=== PATIENT | male | born 1995 | race Caucasian/White ===

== ENCOUNTER 2018-01-05 13:11 | Emergency (ER) | payer BC, SELFPAY ==
[2018-01-05 13:24] VITALS: BP 126/85; PULSE 78; RESP 16; TEMP 36.5
--- NOTE | 2018-01-05 13:29 | ED.GENADUL_ITS ---
Discharge Plan Disposition Patient Disposition: HOME Condition: Stable Discharge Details Chief Complaint: Nk/Back Pain Clinical Impression: Back pain Reason For Visit: back pain Primary Care Provider: Misty Fraser ED Provider: Norma Roberts Home Meds and New Rx's Prescriptions: New prednisone 50 mg tablet 50 mg PO DAILY Qty: 4 RF: 0 No Action omeprazole 20 MG tablet,delayed release (DR/EC) 20 mg PO DAILY 90 Days Qty: 90 RF: 3 diazepam [Valium] 5 mg tablet 5 mg PO TID PRN (Reason: muscle spasm) Qty: 10 RF: 0 Discharge Instructions Instructions: Prednisone (By mouth), Cyclobenzaprine (By mouth), Back Pain (ED) Additional Instructions: Please return immediately to the emergency department if you develop any new or worsening symptoms or if you become otherwise concerned. It is extremely important that you make an appointment to be seen in follow-up for this visit by your primary care doctor within the next 1-2 weeks. Stand Alone Forms: Work Release Referrals: Misty Fraser, [employer] [Primary Care Provider] - Discharge Data Discharge Date/Time-TO BE ENTERED AT DEPARTURE: 01/05/18 16:07 Medical Decision Making Woody Garcia is a 22-year-old man with history of ADHD presenting to the emergency department with diffuse thoracic and lumbar back pain for the past 2 days, worse with lifting, bending, and movement. Pain is nonexertional and there is no chest pain or abdominal pain. On exam patient has diffuse tenderness to palpation of the thoracic and lumbar spine without focality. The C-spine is nontender. There are no motor or sensory deficits of the lower extremities. Exam/history is not consistent with renal stone, fx, UTI, acute aortic pathology, sepsis, ACS, PE, cauda equina syndrome, epidural abscess, epidural hematoma, other cord compression, or other acute life or limb threatening etiology. Concern for likely muscle strain. Postvoid residual shows 2 cc of fluid. Plan for prednisone, Flexeril, outpatient follow-up with PCP. Patient asks incidental question regarding lightheadedness that he has with squatting. States this has been ongoing since last spring, that when he squats down and then stands up he feels very lightheaded. He reports that he has fainted once from this in the past, although this was several months ago. Patient reports that he exerts himself frequently, and has never had lightheadedness, palpitations, chest pain, or any other symptoms during exertion. Will obtain EKG. He has no current lightheadedness and again states that any associated onset of back pain. EKG is okay. Exam/history is not consistent with arrhythmia, other acute life- threatening process. EKG does not show HOCM. Patient needs outpatient follow- up with PCP for further evaluation. Lengthy discussion with patient regarding return to emergency department precautions and importance of outpatient follow- up with his PCP, patient is placed on list for care management for outpatient follow-up. Patient is amenable to the plan. Medical Records Medical records reviewed: Yes I reviewed the patient's medical records. ECG Data Attestation: I personally reviewed and interpreted this ECG (s) as follows: Interpretation: EKG shows sinus bradycardia at 57, normal axis, no Brugada, no WPW, no long QT, no HOCM, no STEMI, nondiagnostic EKG. HPI General Mode of arrival: ambulatory . Date/Time Provider Initiated Documentation: 01/05/18 13:29 . Limitations to Documentation: no limitations . Information obtained by: patient, RN notes reviewed and old records reviewed . HPI Narrative: Woody Garcia is a 22-year-old man with a history of ADHD presenting to the emergency department back pain. Patient reports that 2 days ago he developed sudden onset back pain diffusely throughout his whole back upon getting out of bed. Patient reports that he works at [employer], and during lifting and bending, his pain has become much worse. Patient reports that pain decreases significantly but does not fully resolve with rest, and becomes much worse with bending, lifting, or other exaggerated movement. He denies any chest pain or abdominal pain. He reports that he has had similar back pain in the past in location and quality but this is worse in severity. He denies chest pain, abdominal pain, any other pain, fevers, cough, shortness of breath, nausea, vomiting, diarrhea, numbness, tingling, weakness, change in urinary function, constipation or change in bowel function. No recent travel, has been eating and drinking as usual, no recent illness. Not on blood thinners. No history of IV drug use. Related Data Home Medications Medication Instructions Recorded Confirmed omeprazole 20 mg PO DAILY 90 Days #90 07/25/17 01/08/18 tablet. prednisone 50 mg PO DAILY #4 tab 01/05/18 01/08/18 diazepam [Valium] 5 mg PO TID PRN #10 tab 01/08/18 Previous Rx's Medication Instructions Recorded omeprazole 20 mg PO DAILY 90 Days #90 07/25/17 tablet. prednisone 50 mg PO DAILY #4 tab 01/05/18 diazepam [Valium] 5 mg PO TID PRN #10 tab 01/08/18 Allergies Allergy/AdvReac Type Severity Reaction Status Date / Time No Known Allergies Allergy Verified 01/08/18 08:54 General Stated Complaint: Nk/Back Pain DAQUAN: 4 Review of Systems Review of Systems Constitutional: denies fevers Eyes: denies eye pain ENT: denies facial pain, dental pain, sore throat Cardiovascular: denies chest pain, edema Respiratory: denies SOB, cough GI: denies abdominal pain, vomiting, diarrhea, constipation : denies flank pain, urinary hesitation, retention, or incontinence MSK: denies neck pain, arthralgias, myalgias, reports back pain Skin: denies rash Neuro: denies headaches, lightheadedness, weakness, numbness, tingling PFSH Family History Mother No problems noted. Father No problems noted. Sister No problems noted. Brother No problems noted. Brother No problems noted. Brother No problems noted. Social History household members: family lives independently: Yes current occupational status: employed current occupation: [employer] Smoking/Tobacco Use Status: Never alcohol intake: never substance use type: marijuana seatbelt use: always working smoke detector in home: Yes carbon monox detector in home: Yes Social History household members: family lives independently: Yes current occupational status: employed current occupation: [employer] Smoking/Tobacco Use Status: Never alcohol intake: never substance use type: marijuana seatbelt use: always working smoke detector in home: Yes carbon monox detector in home: Yes Exam Narrative Exam Narrative: Constitutional: well and [id number], pleasant, conversing normally HENT: head atraumatic, normocephalic normal inspection, mucous membranes moist Eyes: conjunctiva normal, sclera normal, pupils 3mm b/l Neck: no stridor, normal ROM, trachea midline. C-spine is nontender to palpation. Chest: normal inspection Resp: normal work of breathing, LCTAB Cardio: normal rate, normal rhythm, no murmur appreciated GI: abdomen soft, non-tender, non-distended Back: normal inspection, no rash. Diffuse tenderness to palpation of the thoracic and lumbar spine without focality or point tenderness. There is no tenderness palpation of the paraspinals. Skin: warm, dry, normal color, no rash Neuro: alert, not altered, grossly non-focal, normal tone. Motor 5 out of 5 bilateral lower extremities, no sensory deficit of the lower extremities. Ext: no edema Psych: normal mood, normal affect, normal behavior Course Vital Signs Temperature 36.5 C 01/05/18 13:24 Pulse 78 01/05/18 13:24 Respiratory Rate 16 01/05/18 13:24 Blood Pressure 126/85 01/05/18 13:24 Temperature 36.5 C 01/05/18 13:24 Temperature Source Temporal Artery Scan 01/05/18 13:24 Pulse 78 01/05/18 13:24 Respiratory Rate 16 01/05/18 13:24 Blood Pressure 126/85 01/05/18 13:24 Blood Pressure Position Sitting 01/05/18 13:24 Oxygen Delivery Method Room Air 01/05/18 13:24 Oxygen Flow Rate 0 01/05/18 13:24 Pain Level 7 01/05/18 13:24
[2018-01-05] MEDS: predniSONE 20 MG TAB 60 MG PO (15:55)
== END 2018-01-05 16:07 | disposition home or self-care (01) ==
LOC: ER 15:26
PROVIDERS: Emergency Provider Student in an Organized Health Care Education/Training Program; PCP Nurse Practitioner
DX: M54.5 Low back pain (principal); M54.6 Pain in thoracic spine; R42 Dizziness and giddiness; R00.1 Bradycardia, unspecified
CPT/HCPCS: 93005; 99283; 81003; 93010; J7512

== ENCOUNTER 2018-01-08 08:48 | Emergency (ER) | payer BC, SELFPAY ==
[2018-01-08 08:51] VITALS: BP 144/78; PULSE 90; RESP 18; TEMP 36.4; O2SAT 99
--- NOTE | 2018-01-08 09:00 | W.ED.GENAD ---
Discharge Plan Disposition Patient Disposition: HOME Condition: Stable Discharge Details Chief Complaint: Nk/Back Pain Clinical Impression: Herniation of intervertebral disc of thoracic region Primary Care Provider: Misty Fraser ED Provider: Silvia Tobar Home Meds and New Rx's Prescriptions: New diazepam [Valium] 5 mg tablet 5 mg PO TID PRN (Reason: muscle spasm) Qty: 10 RF: 0 Continue omeprazole 20 MG tablet,delayed release (DR/EC) 20 mg PO DAILY 90 Days Qty: 90 RF: 3 lisdexamfetamine [Vyvanse] 40 mg capsule 40 mg PO DAILY MDD 1 28 Days Qty: 28 RF: 0 prednisone 50 mg tablet 50 mg PO DAILY Qty: 4 RF: 0 Discontinued cyclobenzaprine 5 mg tablet 5 mg PO TID PRN (Reason: back pain) Qty: 9 RF: 0 Discharge Instructions Instructions: Thoracic Disc Herniation (ED) Additional Instructions: Encourage hydration. Tylenol and/or ibuprofen as needed for discomfort. You may take approximately grams of Tylenol every 6 hours as needed, 600 mg of ibuprofen every 6 hours as needed. Please finish the steroid burst. Please stop Flexeril and use Valium as prescribed for muscle spasm. Please do not drive while taking this medication. We have an appointment next at 10 AM at the spine Center on [address] with Jordi Cervantes. Please arrive at 940 in the morning. After this appointment, you have an appointment with spine therapy. [phone] If you develop weakness in the lower extremities, change in bowel or bladder habits or other new/worsening symptoms please seek care urgently once again. Stand Alone Forms: Work Release Discharge Data Discharge Date/Time-TO BE ENTERED AT DEPARTURE: 01/08/18 14:05 Medical Decision Making Patient is a 22-year-old male presenting today with chief complaint of continued back pain. He was seen here 3 days ago at which time he was diagnosed with muscle spasm and back strain. Patient states the pain initially began abruptly 5 days ago. Had awoken with his discomfort approximately 5 days ago. Patient does work at [employer] and does frequent heavy lifting. Patient was placed on prednisone and Flexeril despite this the pain has greatly increased. Pain is fairly diffuse lower thoracic and lumbar spine. He denies any fevers or chills. Vital signs within normal limits. On exam, patient has diffuse discomfort with spasm palpable on the left side. Patient appears clearly uncomfortable with frequent muscle spasms particularly in his legs. Positive straight leg raise on the left. Diminished two-point sensation on the left compared to the right. He is endorsing some sensation changes in the lateral aspect of the lower extremities, more so than saddle paresthesias. He appears nontoxic. At this point, given the sensory changes and increase in his discomfort, I feel that MRI is appropriate. Patient will be given p.o. Valium to help with muscle spasm and a small amount of IV Dilaudid to help with discomfort. Laboratory evaluation without abnoramlity, no leukocytosis. No elevatio in ESR or CRP. Patient feels much improved after valium, this seems to control his muscle spasms much better. MRI reviewed by radiologist. We discussed this over the phone. Dr. Banda advised that there is multiple disc herniations. Advised that there is no herniation of the lumbar spine. However, thoracic spine is significant for herniation on the left side at T8 6 7, T7-8. Also notes herniation on the right side at T8-9. Advised that there is cord deformity but no compression or stenosis. Consult with Dr. Boothe who advised referral to spine clinic Given the changes in his sensation in the LLe and continued pain, will consult with spine surgery at [facility]. Spoke with nursing staff at [facility] spine center. Dr. Zheng reviewed MRI. He advised that none of the disc herniations are overly remarkable. Advised that they are pretty small. He did note that the one on the right side was larger than those on the left. He did advise follow-up in their clinic. Appointment was made for the patient in 1 week. Also advised spine therapy who the patient will be seen after. Nursing staff did ask Dr. Zhegn about increasing steroids but this was not recommended at this time. They did advised symptomatic management Discussed these findings and the plan with the patient and his family. As he has had pain in this area previously over the past several years, I advised that this may be nonacute and rather an exacerbation of his chronic discomfort. Valium sseemed work much better for his muscle spasms. Patient will be prescribed oral Valium. Advised against driving while taking his medication. He will continue with prednisone. Will stop Flexeril. Tylenol and ibuprofen as needed for discomfort. We discussed new/worsening symptoms when to seek care urgently once again. In particular, discussed neurologic changes that should prompt him to return immediately. Work note was given. All of his questions and concerns were addressed and he is in agreement with this plan. HPI General Mode of arrival: ambulatory. Date/Time Provider Initiated Documentation: 01/08/18 08:56. Limitations to Documentation: no limitations. Information obtained by: patient. History of Present Illness 22 year old M presents to the emergency department with the chief complaint of back pain, described as moderate, with intensity rated at 8. Quality is described as stabbing and aching, and is localized to the back. Patient reports no radiation. Patient started experiencing this day(s) (5) and it has been constant. Immobilization improves symptom(s), Movement worsens symptoms . Patient notes denies chest pain, cough, fever/chills, headaches, nausea/vomiting, rash and weakness. Patient did receive the following treatments prior to arrival, other (took Flexeril as prescribed this AM) Related Data Home Medications Medication Instructions Recorded Confirmed omeprazole 20 mg PO DAILY 90 Days #90 07/25/17 01/08/18 tablet. lisdexamfetamine 40 mg capsule 40 mg PO DAILY 28 Days #28 tab-cap 11/20/17 01/08/18 MDD 1 prednisone 50 mg PO DAILY #4 tab 01/05/18 01/08/18 diazepam [Valium] 5 mg PO TID PRN #10 tab 01/08/18 Previous Rx's Medication Instructions Recorded omeprazole 20 mg PO DAILY 90 Days #90 07/25/17 tablet.dr mcduffiedexamfetamine 40 mg capsule 40 mg PO DAILY 28 Days #28 tab-cap 11/20/17 MDD 1 prednisone 50 mg PO DAILY #4 tab 01/05/18 diazepam [Valium] 5 mg PO TID PRN #10 tab 01/08/18 Allergies Allergy/AdvReac Type Severity Reaction Status Date / Time No Known Allergies Allergy Verified 01/08/18 08:54 General Stated Complaint: Nk/Back Pain DAQUAN: 3 Review of Systems Constitutional Reports as per HPI, Denies chills, Denies fever(s), Denies headache(s) and Denies weakness ENT Denies headache(s) Cardiovascular Reports as per HPI Respiratory Reports as per HPI and Denies cough Gastrointestinal Denies abdominal pain, Denies change in stool character, Denies nausea and Denies vomiting Genitourinary Denies difficulty urinating, Denies urinary hesitancy and Denies urinary incontinence Musculoskeletal Reports as per HPI, Denies abnormal gait, Reports back pain, Reports limited range of motion and Reports numbness (denies numbness but endorses diminished sensation in the bilateral LE, worse in diann LLE) Integumentary/Breasts Reports as per HPI, Denies rash and Denies wounds Neurologic Denies abnormal gait, Denies headache(s), Reports numbness (denies numbness but endorses diminished sensation in the bilateral LE, worse in diann LLE), Denies radicular pain, Reports sensory deficit and Denies weakness PFSH Family History Mother No problems noted. Father No problems noted. Sister No problems noted. Brother No problems noted. Brother No problems noted. Brother No problems noted. Family History Mother No problems noted. Father No problems noted. Sister No problems noted. Brother No problems noted. Brother No problems noted. Brother No problems noted. Social History household members: family lives independently: Yes current occupational status: employed current occupation: [employer] Smoking/Tobacco Use Status: Never alcohol intake: never substance use type: marijuana seatbelt use: always working smoke detector in home: Yes carbon monox detector in home: Yes Social History household members: family lives independently: Yes current occupational status: employed current occupation: [employer] Smoking/Tobacco Use Status: Never alcohol intake: never substance use type: marijuana seatbelt use: always working smoke detector in home: Yes carbon monox detector in home: Yes Exam Const General: cooperative, healthy appearing, comfortable, no acute distress, well developed and well groomed Nutritional Appearance: average body habitus and well nourished Orientation: alert and awake Neck Neck: normal visual inspection, full ROM, no lymphadenopathy and no meningeal signs Chest Chest: normal inspection of the chest and no localized rib tenderness Resp Effort & Inspection: normal respiratory effort, able to speak in complete sentences and no respiratory distress Auscultation: clear to auscultation bilaterally Cardio Rate: regular rate Rhythm: regular rhythm Heart Sounds: S1 normal and S2 normal GI Inspection: normal to inspection Palpation: soft, no guarding and nontender Back/Spine/Pelvis Back: no CVA tenderness Cervical Spine: normal cervical lordosis and cervical ROM normal Thoracic/Lumbar Spine: No thoracic and lumbar spine normal to inspection (pain with palpation over the thoracic and lumbar spine. T>L. Fairly diffuse, pain maximal left of midline. No step off palpable. Limited ROM, particularly with rotation to the left), No surgical scar(s) present, No straight leg raise negative bilaterally (positive bilatearlly, pain worse and earlier on the left side), pain with thoraco-lumbar ROM, paraspinal tenderness and straight leg raise positive Skin General skin exam: no rashes or lesions noted Lesions: no lesions Rashes: no rashes Trauma: no lacerations or abrasions Neuro General: alert, awake, oriented x3, gait normal, tone normal, moves all extremities, no meningeal signs, no focal motor deficits and deep tendon reflexes 2+ bilaterally Cognition: normal cognition Speech: speech normal Gait: normal gait Motor: muscle tone normal throughout and strength 5/5 throughout Sensory Exam: abnormal double simultaneous stimulation (2 point discriminiation intact on the RLE, limited on the LLE. ) DTR's: Rt Patellar: 2+, Lt Patellar: 2+, Rt Ankle: 2+ and Lt Ankle: 2+ Plantar Reflexes: Downgoing: bilateral Extrem General: abnormal to inspection (sensory deficit as noted above) Psych Appearance: grossly normal and well kempt Mental Status: mental status grossly normal Speech and Movement: speech and movement normal Course Vital Signs Temperature 36.4 C L 01/08/18 08:51 Pulse 90 01/08/18 08:51 Respiratory Rate 18 01/08/18 08:51 Blood Pressure 144/78 H 01/08/18 08:51 Pulse Oximetry 99 01/08/18 08:51 Temperature 36.4 C L 01/08/18 08:51 Temperature Source Temporal Artery Scan 01/08/18 08:51 Pulse 90 01/08/18 08:51 Respiratory Rate 18 01/08/18 08:51 Respiratory Effort Non-Labored 01/08/18 08:53 Blood Pressure 144/78 H 01/08/18 08:51 Blood Pressure Position Sitting 01/08/18 08:51 Pulse Oximetry 99 01/08/18 08:51 Oxygen Delivery Method Room Air 01/08/18 08:51 Oxygen Flow Rate 0 01/08/18 08:51 Pain Level 8 01/08/18 08:51
--- NOTE | 2018-01-08 09:06 | ED.GENADUL_ITS ---
Discharge Plan Disposition Patient Disposition: HOME Condition: Stable Discharge Details Chief Complaint: Nk/Back Pain Clinical Impression: Herniation of intervertebral disc of thoracic region Primary Care Provider: Misty Fraser ED Provider: Silvia Tobar Home Meds and New Rx's Prescriptions: New diazepam [Valium] 5 mg tablet 5 mg PO TID PRN (Reason: muscle spasm) Qty: 10 RF: 0 Continue omeprazole 20 MG tablet,delayed release (DR/EC) 20 mg PO DAILY 90 Days Qty: 90 RF: 3 lisdexamfetamine [Vyvanse] 40 mg capsule 40 mg PO DAILY MDD 1 28 Days Qty: 28 RF: 0 prednisone 50 mg tablet 50 mg PO DAILY Qty: 4 RF: 0 Discontinued cyclobenzaprine 5 mg tablet 5 mg PO TID PRN (Reason: back pain) Qty: 9 RF: 0 Discharge Instructions Instructions: Thoracic Disc Herniation (ED) Additional Instructions: Encourage hydration. Tylenol and/or ibuprofen as needed for discomfort. You may take approximately grams of Tylenol every 6 hours as needed, 600 mg of ibuprofen every 6 hours as needed. Please finish the steroid burst. Please stop Flexeril and use Valium as prescribed for muscle spasm. Please do not drive while taking this medication. We have an appointment next at 10 AM at the spine Center on [address] with Jordi Cervantes. Please arrive at 940 in the morning. After this appointment, you have an appointment with spine therapy. [phone] If you develop weakness in the lower extremities, change in bowel or bladder habits or other new/worsening symptoms please seek care urgently once again. Stand Alone Forms: Work Release Discharge Data Discharge Date/Time-TO BE ENTERED AT DEPARTURE: 01/08/18 14:05 Medical Decision Making Patient is a 22-year-old male presenting today with chief complaint of continued back pain. He was seen here 3 days ago at which time he was diagnosed with muscle spasm and back strain. Patient states the pain initially began abruptly 5 days ago. Had awoken with his discomfort approximately 5 days ago. Patient does work at [employer] and does frequent heavy lifting. Patient was placed on prednisone and Flexeril despite this the pain has greatly increased. Pain is fairly diffuse lower thoracic and lumbar spine. He denies any fevers or chills. Vital signs within normal limits. On exam, patient has diffuse discomfort with spasm palpable on the left side. Patient appears clearly uncomfortable with frequent muscle spasms particularly in his legs. Positive straight leg raise on the left. Diminished two-point sensation on the left compared to the right. He is endorsing some sensation changes in the lateral aspect of the lower extremities, more so than saddle paresthesias. He appears nontoxic. At this point, given the sensory changes and increase in his discomfort, I feel that MRI is appropriate. Patient will be given p.o. Valium to help with muscle spasm and a small amount of IV Dilaudid to help with discomfort. Laboratory evaluation without abnoramlity, no leukocytosis. No elevatio in ESR or CRP. Patient feels much improved after valium, this seems to control his muscle spasms much better. MRI reviewed by radiologist. We discussed this over the phone. Dr. Banda advised that there is multiple disc herniations. Advised that there is no herniation of the lumbar spine. However, thoracic spine is significant for herniation on the left side at T8 6 7, T7-8. Also notes herniation on the right side at T8-9. Advised that there is cord deformity but no compression or stenosis. Consult with Dr. Boothe who advised referral to spine clinic Given the changes in his sensation in the LLe and continued pain, will consult with spine surgery at [facility]. Spoke with nursing staff at [facility] spine center. Dr. Zheng reviewed MRI. He advised that none of the disc herniations are overly remarkable. Advised that they are pretty small. He did note that the one on the right side was larger than those on the left. He did advise follow-up in their clinic. Appointment was made for the patient in 1 week. Also advised spine therapy who the patient will be seen after. Nursing staff did ask Dr. Zheng about increasing steroids but this was not recommended at this time. They did advised symptomatic management Discussed these findings and the plan with the patient and his family. As he has had pain in this area previously over the past several years, I advised that this may be nonacute and rather an exacerbation of his chronic discomfort. Valium sseemed work much better for his muscle spasms. Patient will be prescribed oral Valium. Advised against driving while taking his medication. He will continue with prednisone. Will stop Flexeril. Tylenol and ibuprofen as needed for discomfort. We discussed new/worsening symptoms when to seek care urgently once again. In particular, discussed neurologic changes that should prompt him to return immediately. Work note was given. All of his questions and concerns were addressed and he is in agreement with this plan. HPI General Mode of arrival: ambulatory . Date/Time Provider Initiated Documentation: 01/08/18 08:56 . Limitations to Documentation: no limitations . Information obtained by: patient . History of Present Illness 22 year old M presents to the emergency department with the chief complaint of back pain, described as moderate, with intensity rated at 8. Quality is described as stabbing and aching, and is localized to the back. Patient reports no radiation. Patient started experiencing this day(s) (5) and it has been constant. Immobilization improves symptom(s), Movement worsens symptoms . Patient notes denies chest pain, cough, fever/chills, headaches, nausea/vomiting, rash and weakness. Patient did receive the following treatments prior to arrival, other (took Flexeril as prescribed this AM) Related Data Home Medications Medication Instructions Recorded Confirmed omeprazole 20 mg PO DAILY 90 Days #90 07/25/17 01/08/18 tablet. lisdexamfetamine 40 mg capsule 40 mg PO DAILY 28 Days #28 tab-cap 11/20/1701/08 MDD 1 prednisone 50 mg PO DAILY #4 tab 01/05/18 01/08/18 diazepam [Valium] 5 mg PO TID PRN #10 tab 01/08/18 Previous Rx's Medication Instructions Recorded omeprazole 20 mg PO DAILY 90 Days #90 07/25/17 tablet.dr mcduffiedexamfetamine 40 mg capsule 40 mg PO DAILY 28 Days #28 tab-cap 11/20/17 MDD 1 prednisone 50 mg PO DAILY #4 tab 01/05/18 diazepam [Valium] 5 mg PO TID PRN #10 tab 01/08/18 Allergies Allergy/AdvReac Type Severity Reaction Status Date / Time No Known Allergies Allergy Verified 01/08/18 08:54 General Stated Complaint: Nk/Back Pain DAQUAN: 3 Review of Systems Constitutional Reports as per HPI, Denies chills, Denies fever(s), Denies headache(s) and Denies weakness ENT Denies headache(s) Cardiovascular Reports as per HPI Respiratory Reports as per HPI and Denies cough Gastrointestinal Denies abdominal pain, Denies change in stool character, Denies nausea and Denies vomiting Genitourinary Denies difficulty urinating, Denies urinary hesitancy and Denies urinary incontinence Musculoskeletal Reports as per HPI, Denies abnormal gait, Reports back pain, Reports limited range of motion and Reports numbness (denies numbness but endorses diminished sensation in the bilateral LE, worse in diann LLE) Integumentary/Breasts Reports as per HPI, Denies rash and Denies wounds Neurologic Denies abnormal gait, Denies headache(s), Reports numbness (denies numbness but endorses diminished sensation in the bilateral LE, worse in diann LLE), Denies radicular pain, Reports sensory deficit and Denies weakness PFSH Family History Mother No problems noted. Father No problems noted. Sister No problems noted. Brother No problems noted. Brother No problems noted. Brother No problems noted. Family History Mother No problems noted. Father No problems noted. Sister No problems noted. Brother No problems noted. Brother No problems noted. Brother No problems noted. Social History household members: family lives independently: Yes current occupational status: employed current occupation: [employer] Smoking/Tobacco Use Status: Never alcohol intake: never substance use type: marijuana seatbelt use: always working smoke detector in home: Yes carbon monox detector in home: Yes Social History household members: family lives independently: Yes current occupational status: employed current occupation: [employer] Smoking/Tobacco Use Status: Never alcohol intake: never substance use type: marijuana seatbelt use: always working smoke detector in home: Yes carbon monox detector in home: Yes Exam Const General: cooperative, healthy appearing, comfortable, no acute distress, well developed and well groomed Nutritional Appearance: average body habitus and well nourished Orientation: alert and awake Neck Neck: normal visual inspection, full ROM, no lymphadenopathy and no meningeal signs Chest Chest: normal inspection of the chest and no localized rib tenderness Resp Effort & Inspection: normal respiratory effort, able to speak in complete sentences and no respiratory distress Auscultation: clear to auscultation bilaterally Cardio Rate: regular rate Rhythm: regular rhythm Heart Sounds: S1 normal and S2 normal GI Inspection: normal to inspection Palpation: soft, no guarding and nontender Back/Spine/Pelvis Back: no CVA tenderness Cervical Spine: normal cervical lordosis and cervical ROM normal Thoracic/Lumbar Spine: No thoracic and lumbar spine normal to inspection (pain with palpation over the thoracic and lumbar spine. T>L. Fairly diffuse, pain maximal left of midline. No step off palpable. Limited ROM, particularly with rotation to the left), No surgical scar(s) present, No straight leg raise negative bilaterally (positive bilatearlly, pain worse and earlier on the left side), pain with thoraco-lumbar ROM, paraspinal tenderness and straight leg raise positive Skin General skin exam: no rashes or lesions noted Lesions: no lesions Rashes: no rashes Trauma: no lacerations or abrasions Neuro General: alert, awake, oriented x3, gait normal, tone normal, moves all extremities, no meningeal signs, no focal motor deficits and deep tendon reflexes 2+ bilaterally Cognition: normal cognition Speech: speech normal Gait: normal gait Motor: muscle tone normal throughout and strength 5/5 throughout Sensory Exam: abnormal double simultaneous stimulation (2 point discriminiation intact on the RLE, limited on the LLE. ) DTR's: Rt Patellar: 2+, Lt Patellar: 2+, Rt Ankle: 2+ and Lt Ankle: 2+ Plantar Reflexes: Downgoing: bilateral Extrem General: abnormal to inspection (sensory deficit as noted above) Psych Appearance: grossly normal and well kempt Mental Status: mental status grossly normal Speech and Movement: speech and movement normal Course Vital Signs Temperature 36.4 C L 01/08/18 08:51 Pulse 90 01/08/18 08:51 Respiratory Rate 18 01/08/18 08:51 Blood Pressure 144/78 H 01/08/18 08:51 Pulse Oximetry 99 01/08/18 08:51 Temperature 36.4 C L 01/08/18 08:51 Temperature Source Temporal Artery Scan 01/08/18 08:51 Pulse 90 01/08/18 08:51 Respiratory Rate 18 01/08/18 08:51 Respiratory Effort Non-Labored 01/08/18 08:53 Blood Pressure 144/78 H 01/08/18 08:51 Blood Pressure Position Sitting 01/08/18 08:51 Pulse Oximetry 99 01/08/18 08:51 Oxygen Delivery Method Room Air 01/08/18 08:51 Oxygen Flow Rate 0 01/08/18 08:51 Pain Level 8 01/08/18 08:51
[2018-01-08] MEDS: HYDROmorphone 2 MG/ML VIAL 1 MG IVP (09:39)
[2018-01-08] MEDS: Diazepam 5 MG TAB PO (09:39)
[2018-01-08 09:43] LABS: Abs Immature Grans 0.04 k/cumm (0.0-0.09); Absolute Basophil Count 0.04 k/cumm (0.0-0.2); Absolute Eosinophil Count 0.05 k/cumm (0.0-0.7); Absolute Monocyte Count 0.82 k/cumm (0.11-0.7); Absolute Neutrophil Count 5.82 k/cumm (1.2-6.7); Basophils % 0.4; Eosinophils % 0.5; HCT 45.7 % (40.0-50.0); HGB 15.3 g/dL (13.5-17.5); Immature Grans % 0.4; Mean Corp. HGB Concentration 33.5 g/dL (32.0-36.0); Mean Corpuscular Hemoglobin 29.5 pg (27.0-33.0); Mean Corpuscular Volume 88.1 fL (80-95); Mean Platelet Volume 10.4 fL (8.0-11.0); Monocytes % 8.8; Neutrophils % 62.9; Platelet Count 213 x1000/uL (130-400); RBC 5.19 m/cumm (4.50-6.00); RBC Distribution Width 13.5 % (11.8-14.1); White Blood Cell Count 9.27 k/cumm (4.4-10.8)
[2018-01-08] MEDS: Normal Saline 1,000 ML 1000 ML IV (09:44)
[2018-01-08 09:58] LABS: ALT 16 U/L (12-78); AST 8 U/L (15-37); Albumin 3.8 g/dL (3.4-5.0); Alkaline Phosphatase 58 U/L (46-116); Anion Gap 6.8 mmol/L (3-11); BUN 18 mg/dL (7-18); Bilirubin, Total 0.4 mg/dL (0.2-1.0); CO2 31.2 mmol/L (21.0-32.0); Chloride 105 mmol/L (98-107); Glucose 91 mg/dL (70-100); Potassium 3.7 mmol/L (3.5-5.1); Sodium 143 mmol/L (136-145); Total Protein 6.9 g/dL (6.4-8.2)
[2018-01-08 10:08] LABS: C-Reactive Protein 0.08 mg/dL (0.0-0.3)
[2018-01-08 10:17] LABS: ESR 7 MM/HR (0-15)
--- NOTE | 2018-01-08 11:20 | DI.MRI_ITS ---
SYMPTOM/DIAGNOSIS: DIMINISHED SENSATION LLE, PAIN, SPASM THORACIC SPINE MRI: 01/08 MRI examination of the thoracic spine was performed according to the usual protocol. No significant bony signal abnormality is seen. There is no bony central canal spinal stenosis At T6-7, there is a small to moderate sized left sided disc herniation, mild impingement on the anterior cord surface and slight deformity of the anterior cord surface noted at this level. At T7-T8 level there is small to moderate sized disc herniation with slight cord surface impingement and deformity also noted at this level. At T8-T9 there is a right moderate sized disc herniation with associated contour abnormality of the cord right anterior. Minimal right sided disc herniation is also noted at the T3-4 level without significant cord deformity. Intra cord signal appears normal throughout. No evidence of central canal spinal stenosis or neuroforaminal stenosis. CONCLUSION: Multi-level disc herniations as described above. Most prominent disc herniations are at T6-7 and T7-8 on left, and at T8-9 on right with associated mild anterior cord deformity at each of these levels.
--- NOTE | 2018-01-08 11:55 | DI.MRI_ITS ---
SYMPTOM/DIAGNOSIS: DIMINISHED SENSATION LLE, PAIN, SPASM LUMBOSACRAL SPINE MRI: 01/08 MRI examination of the lumbosacral spine was performed according to the usual protocol. No bony signal abnormality is seen. Disc signal appears intact. There is no evidence of disc herniation. There is no evidence of spinal stenosis or neural foramina stenosis. The conus medullaris appears intact. CONCLUSION: Normal lumbosacral spine MRI.
[2018-01-08 13:34] VITALS: BP 122/74; PULSE 89; RESP 16; TEMP 36.2; O2SAT 97
[2018-01-08 14:04] VITALS: BP 122/74; PULSE 89; RESP 16; TEMP 36.4; O2SAT 97
--- NOTE | 2018-01-09 12:26 | NUR.NOTE ---
Lab called stating no urine in lab. They will cancel the order. Mrecy Coleman
== END 2018-01-08 14:05 | disposition home or self-care (01) ==
PROVIDERS: Emergency Provider Physician Assistant; PCP Nurse Practitioner
DX: M51.24 Other intervertebral disc displacement, thoracic region (principal)
CPT/HCPCS: 80053; 85652; 99284; 72146; 72148; 81003; 85025; 86140

== ENCOUNTER 2018-06-17 13:18 | Outpatient (REF) | payer BC, SELFPAY ==
[2018-06-18 14:18] LABS: Campylobacter PCR SEE COMMENTS; Shiga Toxin PCR SEE COMMENTS; Shigella/Enteroinvasive Ecoli SEE COMMENTS
[2018-06-18 16:26] LABS: Salmonella PCR SEE COMMENTS
== END 2018-06-17 13:38 ==
LOC: LBN 13:18
PROVIDERS: PCP Nurse Practitioner; Visit Provider Family Medicine
DX: K52.9 Noninfective gastroenteritis and colitis, unspecified (principal)
CPT/HCPCS: 87329; 87505; 87177; 87324

== ENCOUNTER 2018-12-30 14:33 | Outpatient (CLI) | payer BC, SELFPAY ==
--- NOTE | 2018-12-30 14:15 | DI.RAD_ITS ---
EXAM: XR WRIST LT COMPLETE INDICATION: pain AFTER FALL M25.532. COMPARISON: No exams were available for comparison TECHNIQUE: 2D digital imaging was performed. FINDINGS: No fracture or dislocation is seen. IMPRESSION: Negative left wrist.
--- NOTE | 2018-12-30 14:55 | DI.RAD_ITS ---
EXAM: XR ELBOW LT COMPLETE INDICATION: pain AFTER FALL M25.522. COMPARISON: No exams were available for comparison TECHNIQUE: 2D digital imaging was performed. FINDINGS: No fracture or joint effusion is seen. A bone island is incidentally noted in the radial head. IMPRESSION: Negative left elbow.
--- NOTE | 2018-12-30 15:29 | DI.CT_ITS ---
EXAM: CT HEAD WO CLINICAL HISTORY: R51 headache, nausea, after fall, R11.0 NAUSEA TECHNIQUE: Noncontrast COMPARISON: No exams were available for comparison FINDINGS: No intracranial hemorrhage or skull fracture is seen. There is normal alvarez-white matter differentia tion. The ventricles are normal in size. The sinuses and mastoid air cells appear clear where visua lized. The orbits are unremarkable. IMPRESSION: Negative head CT.
== END 2018-12-30 14:53 ==
PROVIDERS: PCP Family Medicine; Visit Provider Nurse Practitioner
DX: M25.532 Pain in left wrist (principal); M25.522 Pain in left elbow; R51 Headache; R11.0 Nausea; W00.9XXA Unspecified fall due to ice and snow, initial encounter
CPT/HCPCS: 70450; 73080; 73110

== ENCOUNTER 2019-05-21 09:43 | Outpatient (CLI) | payer SELFPAY ==
[2019-05-24 09:53] LABS: COVID-19 RT-PCR Result Negative (Negative)
== END 2019-05-21 10:03 ==
PROVIDERS: PCP Family Medicine; Visit Provider Family Medicine
DX: R05 Cough (principal); Z03.818 Encounter for observation for suspected exposure to other biological agents ruled out
CPT/HCPCS: U0003

== ENCOUNTER 2019-12-17 08:45 | Outpatient (REF) | payer SELFPAY ==
[2019-12-21 20:22] LABS: N gonorrhoeae amplified RNA Negative (Negative); Source URINE
[2019-12-22 11:05] LABS: Chlamydia amplified RNA Positive (Negative)
== END 2019-12-17 09:05 ==
LOC: LBO 08:45
PROVIDERS: PCP Family Medicine; Visit Provider Family Medicine
DX: Z20.2 Contact with and (suspected) exposure to infections with a predominantly sexual mode of transmission (principal)
CPT/HCPCS: 87491; 87591

== ENCOUNTER 2020-03-28 03:01 | Outpatient (CLI) | payer SELFPAY ==
[2020-03-29 13:26] LABS: COVID-19 RT-PCR UVMMC Result Negative (Negative)
== END 2020-03-28 03:02 | disposition home or self-care (01) ==
LOC: LBO 03:01
PROVIDERS: Surgery; PCP Family Medicine; Visit Provider Surgery
DX: Z20.828 Contact with and (suspected) exposure to other viral communicable diseases (principal); Z01.818 Encounter for other preprocedural examination
CPT/HCPCS: U0003

== ENCOUNTER 2020-03-31 08:37 | Day surgery (SDC) | payer SELFPAY ==
--- NOTE | 2020-03-20 07:02 | W.COLOREPORT ---
Date of service: 03/20/20 Colonoscopy Report Date of procedure: 03/20/20 Pre-op diagnosis general: Bright red blood per rectum Procedure: Colonoscopy Surgeon: Chapis Vazquez Anesthesia proc note operative: other (General/ASA /) Complications: None Disposition: same day Indications: Rectal exam and anoscope exam was unremarkable. No hemorrhoids, inflammation or blood noted on exam. He has no family history of colon cancer or inflammatory bowel disease. -Discussed colonoscopy bowel prep as well as the procedure. Discussed possible complications of the procedure to include bleeding, pain, perforation, missed small lesion/polyp, sore throat, aspiration and adverse reaction to the medications. Questions were answered to patient?s satisfaction. No guarantees were implied or given Prep: Miralax/Dulcolax Procedure Description: After informed consent was obtained the patient was taken to the procedure room and placed in a left decubitous position. Monitors were applied and a time out was done. The patients name, date of , procedure, allergies to medications and metal in their body was reviewed. The patient was then sedated. Once sedated and comfortable a rectal exam was done. External exam was normal. Internal exam revealed a normal sphincter tone and no palpable masses. The prostate []. The scope was then introduced and retro-flexed. [] internal hemorrhoids, polyps or masses were identified on retro-flexion. The scope was then advanced to the cecum [] difficulty. The ileocecal vlave and appendiceal orifice were identified. The prep was []. The scope was then slowly retracted over [] minutes back into the rectum. Polyps were removed at []. There was [] diverticulosis noted. The scope was removed and the patient was woken up and taken back to Same day surgery in stable condition. The patient tolerated the procedure well and there were no immediate complications. Follow up: The patient should follow up in [] years unless they develop changes in bowel habits or other new gastrointestinal complaints.
--- NOTE | 2020-03-20 07:03 | W.PM.DSUDISC ---
Discharge Plan Disposition Patient Disposition: HOME Condition: Good Discharge Details Reason For Visit: Colonoscopy Attending Provider: Chapis Vazquez Primary Care Provider: Minh Parham Discharge Instructions Additional Instructions: Findings: Follow up: Please call if you develop: fevers >101.5 Nausea or Vomiting Abdominal pain that is not transient DAY SURGERY UNIT POST ENDOSCOPY INSTRUCTIONS 1. Because there will be medication in your system for the next 24 hours, you may feel a little sleepy. Your coordination will be affected. Therefore: a. Do not drive or operate dangerous equipment for 24 hours. b. Do not drink alcohol beverages for 24 hours (not even beer). c. Plan to go home and rest for the day. 2. Generally there are no restrictions on your activity after a day or so has gone by, but you may feel a bit fatigued for a few days. 3 After you arrive home you may have a light meal and return to a normal diet as you can tolerate it without feeling sick to your stomach. 4. After surgery, you may feel pain or discomfort. This should be only transient, but if it persists please contact your doctor. 5. If there are any questions regarding the findings of your procedure, please feel free to contact your doctor. 6. If you are unable to contact your doctor with a problem, contact the hospital at [phone]. 7. Continue all your regular medications unless directed otherwise. I understand the above instructions and have no questions. Signature of Patient or Responsible Adult Escort Date/Time Name of Responsible Adult Escort Signature of Nurse Date/Time Activity:: Activity as Tolerated Diet:: As Tolerated
[2020-03-31 08:50] VITALS: BP 134/67; PULSE 62; RESP 16; TEMP 36.7; O2SAT 96
[2020-03-31] MEDS: Lactated Ringers 1,000 ML 80 ML IV (09:09)
--- NOTE | 2020-03-31 09:56 | W.PM.DSUDISC ---
Discharge Plan Disposition Patient Disposition: HOME Condition: Good Discharge Details Reason For Visit: Colonoscopy Attending Provider: Moise Dietz Primary Care Provider: Minh Parham Home Meds and New Rx's Prescriptions: No Action No Known Home Meds RF: 0 Discharge Instructions Additional Instructions: Findings: Follow up: Please call if you develop: fevers >101.5 Nausea or Vomiting Abdominal pain that is not transient DAY SURGERY UNIT POST ENDOSCOPY INSTRUCTIONS 1. Because there will be medication in your system for the next 24 hours, you may feel a little sleepy. Your coordination will be affected. Therefore: a. Do not drive or operate dangerous equipment for 24 hours. b. Do not drink alcohol beverages for 24 hours (not even beer). c. Plan to go home and rest for the day. 2. Generally there are no restrictions on your activity after a day or so has gone by, but you may feel a bit fatigued for a few days. 3 After you arrive home you may have a light meal and return to a normal diet as you can tolerate it without feeling sick to your stomach. 4. After surgery, you may feel pain or discomfort. This should be only transient, but if it persists please contact your doctor. 5. If there are any questions regarding the findings of your procedure, please feel free to contact your doctor. 6. If you are unable to contact your doctor with a problem, contact the hospital at [phone]. 7. Continue all your regular medications unless directed otherwise. I understand the above instructions and have no questions. Signature of Patient or Responsible Adult Escort Date/Time Name of Responsible Adult Escort Signature of Nurse Date/Time Activity:: Activity as Tolerated Diet:: As Tolerated DS: Diagnosis Discharge Diagnosis (1) Blood per rectum: Status: Acute
--- NOTE | 2020-03-31 09:58 | W.COLOREPORT ---
Date of service: 03/31/20 Time of Service: 09:59 Colonoscopy Report Pre-op diagnosis general: Blood per rectum Post-op diagnosis procedure note: same Procedure: Colonoscopy Surgeon: Moise Dietz Anesthesia proc note operative: MAC Pathology: none sent Complications: None Disposition: same day Indications: Blood per rectum Findings: Normal colonic mucosa normal terminal ileum Procedure Description: With the patient in the left lateral decubitus position and under IV sedation the Olympus colonoscope was inserted and easily advanced through the entire colon into the cecum. The orifice of the appendix was visualized. No polyps and no inflammation was noted. The terminal ileum was intubated and the mucosa was normal. Scope was slowly withdrawn and the mucosa inspected. No mucosal abnormalities were noted. There were a few diverticuli in the sigmoid colon. No inflammation was noted. The rectal mucosa was normal and the u-turn was performed no abnormalities were noted.
--- NOTE | 2020-03-31 10:02 | W.PM.DSUDISC ---
Discharge Plan Disposition Patient Disposition: HOME Condition: Good Discharge Details Reason For Visit: Colonoscopy Attending Provider: Moise Dietz Primary Care Provider: Minh Parham Home Meds and New Rx's Prescriptions: No Action No Known Home Meds RF: 0 Discharge Instructions Additional Instructions: Findings: Follow up: Please call if you develop: fevers >101.5 Nausea or Vomiting Abdominal pain that is not transient DAY SURGERY UNIT POST ENDOSCOPY INSTRUCTIONS 1. Because there will be medication in your system for the next 24 hours, you may feel a little sleepy. Your coordination will be affected. Therefore: a. Do not drive or operate dangerous equipment for 24 hours. b. Do not drink alcohol beverages for 24 hours (not even beer). c. Plan to go home and rest for the day. 2. Generally there are no restrictions on your activity after a day or so has gone by, but you may feel a bit fatigued for a few days. 3 After you arrive home you may have a light meal and return to a normal diet as you can tolerate it without feeling sick to your stomach. 4. After surgery, you may feel pain or discomfort. This should be only transient, but if it persists please contact your doctor. 5. If there are any questions regarding the findings of your procedure, please feel free to contact your doctor. 6. If you are unable to contact your doctor with a problem, contact the hospital at [phone]. 7. Continue all your regular medications unless directed otherwise. I understand the above instructions and have no questions. Signature of Patient or Responsible Adult Escort Date/Time Name of Responsible Adult Escort Signature of Nurse Date/Time Activity:: Activity as Tolerated Diet:: As Tolerated Discharge Orders Discharge Orders: Discharge Order (Routine); Ordered 03/31/20 Ordered By: Moise Dietz DS: Diagnosis Discharge Diagnosis (1) Blood per rectum: Status: Acute
[2020-03-31 10:22] VITALS: BP 110/58; PULSE 60; RESP 16; TEMP 36.7; O2SAT 98
== END 2020-03-31 10:50 | disposition home or self-care (01) ==
PROVIDERS: PCP Family Medicine; Visit Provider Surgery
PROC: 0DJD8ZZ Inspection of Lower Intestinal Tract, Via Natural or Artificial Opening Endoscopic (ICD-10-PCS; CPT 45378; principal; 2020-03-31 09:15)
DX: K62.5 Hemorrhage of anus and rectum (principal); F32.9 Major depressive disorder, single episode, unspecified
CPT/HCPCS: 45378; J2001

== ENCOUNTER 2020-09-06 17:39 | Outpatient (REF) | payer SELFPAY ==
--- NOTE | 2020-09-06 | DI.RAD_ITS ---
Exam(s) XR ANKLE LT COMPLETE EXAM: XR ANKLE LT COMPLETE CLINICAL HISTORY: Rolled ankle. TECHNIQUE: 2D digital imaging was performed. COMPARISON: CR RIGHT ANKLE COMPLETE from 02/06/2013 FINDINGS: No evidence of fracture or widening of the mortise. Talar dome unremarkable. No osseous tarsal coal ition. Bone density is normal. There is a tiny inferior calcaneal spur. IMPRESSION: No fracture evident. DATA REPOSITORY: RADIATION DOSE DELIVERED:
--- NOTE | 2020-09-06 18:21 | DI.VRAD_ITS ---
PROCEDURE INFORMATION: Exam: XR Left Ankle Exam date and time: 09/06/2020 5:44 PM Age: 25 years old Clinical indication: Pain; Ankle; Left TECHNIQUE: Imaging protocol: XR Left ankle. Views: 3 or more views. COMPARISON: No relevant prior studies available. FINDINGS: Bones/joints: Normal. Soft tissues: Normal. IMPRESSION: No acute findings. Dictated and Authenticated by: Andrei Boogie MD. Ordering:SHANDRA Hylton MD
== END 2020-09-06 17:59 ==
LOC: DI 17:39
PROVIDERS: PCP Family Medicine; Visit Provider Nurse Practitioner Family
DX: M25.572 Pain in left ankle and joints of left foot (principal)
CPT/HCPCS: 73610

== ENCOUNTER 2020-09-20 17:44 | Outpatient (REF) | payer SELFPAY ==
[2020-09-22 08:36] LABS: HBs Antibody, Quant <3.1 mIU/mL (See Note); Hepatitis B Surface Ab Negative (See Note)
[2020-09-22 08:42] LABS: Hepatitis B Surface Ag Negative (Negative)
[2020-09-22 09:22] LABS: HIV-1/2 Ag & Ab Screen Negative (Negative)
[2020-09-22 09:39] LABS: Hepatitis C Ab w Rflx HCV PCR Negative (Negative)
[2020-09-22 11:06] LABS: Syphilis Serology (RPR) Negative (Negative)
[2020-09-22 15:35] LABS: Chlamydia Result Negative (Negative); GC Result Negative (Negative)
== END 2020-09-20 17:45 | disposition home or self-care (01) ==
LOC: LBN 17:44
PROVIDERS: PCP Family Medicine; Visit Provider Family Medicine
DX: Z20.2 Contact with and (suspected) exposure to infections with a predominantly sexual mode of transmission; Z11.59 Encounter for screening for other viral diseases; Z11.4 Encounter for screening for human immunodeficiency virus [HIV]
CPT/HCPCS: 86706; 86803; 87340; 87389; 87491; 87591; 86592

== ENCOUNTER 2020-12-15 17:33 | Emergency (ER) | payer SELFPAY ==
[2020-12-15 17:37] VITALS: BP 160/87; PULSE 102; RESP 18; TEMP 36.6; O2SAT 97
--- NOTE | 2020-12-15 19:01 | ED.GENADUL_ITS ---
Discharge Plan Disposition Patient Disposition: HOME Condition: Stable Discharge Details Clinical Impression: Laceration of hand, right Primary Care Provider: Minh Parham ED Provider: Cristal Floyd Home Meds and New Rx's Prescriptions: No Action No Known Home Meds RF: 0 Discharge Instructions Instructions: Laceration (ED), Skin Adhesive Care (ED) Additional Instructions: He was given a tetanus shot today. Keep clean and dry. Do not scrub area. After 12 to 24 hours you may wash under running soap and water and dab dry. Please return to the ER or be seen sooner for any signs of infection including increased red streaks, increased pain, swelling or drainage. Be careful with your right hand for the next 2 to 3 days so that the laceration does not open up again. Please take Tylenol or Ibuprofen with food every 4-6 hours as needed for pain and swelling. Stand Alone Forms: Work Release Referrals: Minh Parham DO [Primary Care Provider] - Return if symptoms worsen Discharge Data Discharge Date/Time-TO BE ENTERED AT DEPARTURE: 12/15/20 20:00 Medical Decision Making 25-year-old male presents to the ER with chief complaint of right hand laceration which occurred approximately 2 hours prior to arrival. Patient reports he was opening a box with a crap game box person with his left hand which he is left-hand dominant. He sustained a approximately 2-1/2 to 3 cm laceration to the palm of his right hand. He does have distal gross sensation intact. Is able to flex and extend his fifth and fourth fingers. He does report mild amount of numbness to his face distal finger. Bleeding is controlled upon arrival with pressure. Last tetanus was 2007. He did not take any Tylenol ibuprofen prior to arrival. At this time wound care ordered, topical let and tetanus vaccination. Wound cleaned with chlorhexidine and normal saline irrigation by myself. Tissue adhesive applied wound well approximated. Patient tolerated well. Instructed on home care and strict return instructions, verbalized understanding. HPI General Mode of arrival: ambulatory . Date/Time Provider Initiated Documentation: 12/15/20 17:46 . Limitations to Documentation: no limitations . Information obtained by: patient . HPI Narrative: 25-year-old male presents to the ER with chief complaint of right hand laceration which occurred approximately 2 hours prior to arrival. Patient reports he was opening a box with a crap game box person with his left hand which he is left-hand dominant. He sustained a approximately 2-1/2 to 3 cm laceration to the palm of his right hand. He does have distal gross sensation intact. Is able to flex and extend his fifth and fourth fingers. He does report mild amount of numbness to his face distal finger. Bleeding is controlled upon arrival with pressure. Last tetanus was 2007. He did not take any Tylenol ibuprofen prior to arrival. Related Data Home Medications Medication Instructions Recorded Confirmed Unknown [No Known Home Meds] 12/15/20 12/15/20 Allergies Allergy/AdvReac Type Severity Reaction Status Date / Time laundry detergent Allergy Intermediate rash Uncoded 12/15/20 17:40 itching General Stated Complaint: Laceration DAQUAN: 3 Review of Systems All systems reviewed & are unremarkable except as noted in HPI and below Integumentary/Breasts Skin/Breast: Reports wounds (Laceration right palm) [facility] Medical History (Updated 12/15/20 @ 19:51 by Cristal Floyd) Blood per rectum Depressive disorder (05/12/12) Surgical History (Updated 04/05/20 @ 15:46 by Jennifer Kohler RN) History of colonoscopy (~03/31/20) Family History Mother No problems noted. Father No problems noted. Sister No problems noted. Brother No problems noted. Brother No problems noted. Brother No problems noted. Social History (Updated 01/14/19 @ 13:57 by Ines Little LPN) Smoking/Tobacco Use Status: Current every day Tobacco Type: smokeless tobacco Smoking risk assessment performed?: Yes Alcohol Intake: never Drug use: Daily Substance use type: marijuana Details: last use 03/30 Household members: significant other Housing: apartment Number of Children: 0 Communication Needs: None current occupation: [employer] Current gender identity: male What is your relationship status?: never Panel score (0-1 are the most socially isolated patients): 0 What type of physical activity do you participate in: walking and weight lifting Duration: 30-45 minutes/day Frequency: 5-6 times per week Seatbelt use: always 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 2.5 cm laceration noted to right lateral palm. Bleeding controlled, Extension and flexion of 4th and 5th digits intact. Course Vital Signs Vital signs: Vital Signs Temperature 36.6 C 12/15/20 17:37 Pulse 102 H 12/15/20 17:37 Respiratory Rate 18 12/15/20 17:37 Blood Pressure 160/87 H 12/15/20 17:37 Pulse Oximetry 97 12/15/20 17:37 Temperature 36.6 C 12/15/20 17:37 Temperature Source Tympanic 12/15/20 17:37 Pulse 102 H 12/15/20 17:37 Respiratory Rate 18 12/15/20 17:37 Respiratory Effort Non-Labored 12/15/20 17:40 Blood Pressure 160/87 H 12/15/20 17:37 Blood Pressure Position Sitting 12/15/20 17:37 Pulse Oximetry 97 12/15/20 17:37 Oxygen Delivery Method Room Air 12/15/20 17:37 Oxygen Flow Rate 0 12/15/20 17:37 Pain Level 6 12/15/20 17:37 Procedures Laceration Laceration 1: Site: hand Side (If applicable): right Size (cm): 2.5 Description: linear and clean Depth: simple, single layer Local Anesthetic: Lidocaine 1% and with Epi Amount of anesthesia used (mL): 3 Skin layer closed with: other (Dermabond)
[2020-12-15] MEDS: Lidocaine/Epinephri/Tetracaine Topical Gel 3 ML TP (19:08)
[2020-12-15 20:00] VITALS: BP 148/92; PULSE 98; RESP 18; TEMP 36.6; O2SAT 97
== END 2020-12-15 20:00 | disposition home or self-care (01) ==
PROVIDERS: Emergency Provider Registered Nurse Emergency; PCP Family Medicine
DX: S61.411A Laceration without foreign body of right hand, initial encounter (principal); W26.0XXA Contact with knife, initial encounter
CPT/HCPCS: 12001; 90471

== ENCOUNTER 2023-04-26 17:38 | Emergency (ER) | payer MEDICAID, SELFPAY ==
[2023-04-26 17:42] VITALS: BP 142/85; PULSE 94; TEMP 37.1; O2SAT 95
[2023-04-26 17:48] VITALS: BP 142/85; PULSE 94; TEMP 37.1; O2SAT 95
[2023-04-26] MEDS: Benzocaine 20% Gel 30 GM JAR MM (18:29)
--- NOTE | 2023-04-26 18:42 | W.ED.GENAD ---
Discharge Plan Disposition Patient Disposition: Home Condition: Stable Discharge Details Clinical Impression: Fracture of tooth, Traumatic ulceration of tongue Primary Care Provider: Minh Parham ED Provider: Dawn Harmon Home Meds and New Rx's Prescriptions: Continued lisdexamfetamine [Vyvanse] 70 mg capsule 70 mg PO DAILY MDD 70 mg Qty: 28 0RF lisdexamfetamine [Vyvanse] 70 mg capsule 70 mg PO DAILY MDD 70 mg Qty: 28 0RF Discharge Instructions Instructions: Acute Dental Trauma (ED) Additional Instructions: You may apply the HurriCaine gel topically to the area of tenderness, take ibuprofen and Tylenol for pain control Purchase Orajel [id number] if you run out of the HurriCaine gel and you may apply it to the area of tenderness Stay away from citrus, tomato, spicy food, extremes of temperature, and any salty foods Call one of the dentist from the list supplied or at your own discretion for follow-up Return earlier should you have fever, chills, spreading redness, increased swelling to the side of your face HPI General Date/Time Provider Initiated Documentation: 04/26/23 17:53. HPI Narrative: This 28-year-old male presents with report of right tongue pain. Patient states he fractured tooth approximately a week ago and thinks abrading the side of his tongue. States he has pain with swallowing because of this. Has not attempted any [id number] medication. Does chew tobacco, states this came on suddenly after the fractured tooth. Denies any additional complaints at this time. Denies chest pain or shortness of breath. Related Data Home Medications Medication Instructions Recorded Confirmed lisdexamfetamine 70 mg capsule 70 mg PO DAILY #28 caps 01/30/21 04/26/23 (Vyvanse) lisdexamfetamine 70 mg capsule 70 mg PO DAILY #28 caps 01/30/21 04/26/23 (Vyvanse) Previous Rx's Medication Instructions Recorded lisdexamfetamine 70 mg capsule 70 mg PO DAILY #28 caps 01/30/21 (Vyvanse) lisdexamfetamine 70 mg capsule 70 mg PO DAILY #28 caps 01/30/21 (Vyvanse) Allergies Allergy/AdvReac Type Severity Reaction Status Date / Time laundry detergent Allergy Intermediate rash Uncoded 04/26/23 17:45 itching General Stated Complaint: Sorethroat DAQUAN: 3 Course Vital Signs Vital signs: Vital Signs Temperature 37.1 C 04/26/23 17:42 Pulse 94 H 04/26/23 17:42 Blood Pressure 142/85 H 04/26/23 17:42 Pulse Oximetry 95 04/26/23 17:42 Temperature 37.1 C 04/26/23 17:48 Temperature Source Temporal Artery Scan 04/26/23 17:48 Pulse 94 H 04/26/23 17:48 Respiratory Effort Normal, Non-Labored 04/26/23 17:46 Blood Pressure 142/85 H 04/26/23 17:48 Blood Pressure Position Sitting 04/26/23 17:48 Pulse Oximetry 95 04/26/23 17:48 Oxygen Delivery Method Room Air 04/26/23 17:48 Oxygen Flow Rate 0 04/26/23 17:48 Pain Level 7 04/26/23 17:48 Lab/Test Results Lab/Test Results: 04/26/23 17:53 Pharynx Group A Streptococcus Culture - Pending Medical Decision Making 28-year-old male presenting with report of tongue pain Patient has numerous traumatic ulcerations to his tongue a fractured tooth #29 Dycal was applied to cover the fracture and patient was supplied with HurriCaine gel Given a list of dentist for follow-up No evidence of abscessed tooth clinically Patient feeling improvement Return precautions reviewed and patient expressed understanding No evidence of stasis infection, uvula midline, oropharynx patent, no trismus, alert and oriented x 4 Quality:SDOH Health Related Social Needs: No Data to Display PFSH All Active Problems (Updated 04/26/23 @ 18:43 by ODALYS Wyatt) Traumatic ulceration of tongue (Acute) Fracture of tooth (Acute) Laceration of hand, right (Acute) Blood per rectum (Acute) Depressive disorder (Chronic 05/12/12) Nausea (Acute) Headache (Acute) Left elbow pain (Acute) Left wrist pain (Acute) Fall due to ice or snow (Acute) Routine sports examination for healthy child or adolescent (Acute 05/12/12) Oppositional defiant disorder (Acute 05/12/12) Low testosterone (Acute 04/25/15) Insomnia (Acute 05/12/12) High pitched voice (Acute 04/25/15) Attention deficit hyperactivity disorder, 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 Father No problems noted. Sister No problems noted. Brother No problems noted. Brother No problems noted. Brother No problems noted. Social History (Updated 01/14/19 @ 13:57 by Ines Little LPN) Smoking/Tobacco Use Status: Current every day Tobacco Type: smokeless tobacco Smoking risk assessment performed?: Yes Alcohol Intake: current Alcohol Intake frequency: holidays/special occasions only Drug use: Never Substance use type: does not use Details: last use 03/30 Household members: significant other Housing: apartment Number of Children: 0 Communication Needs: None current occupation: [employer] Current gender identity: male What is your relationship status?: never Panel score (0-1 are the most socially isolated patients): 0 What type of physical activity do you participate in: walking and weight lifting Duration: 30-45 minutes/day Frequency: 5-6 times per week Seatbelt use: always 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 Working smoke detector in home: Yes Fire extinguisher in home: Yes Carbon monox detector in home: Yes Do you feel safe at home: Yes Do you feel safe in your relationship?: Yes PAWSS Have you Been Recently Intoxicated or Drunk Within the Last 30 days?: No Have you Ever Experienced Previous Episodes of Alcohol Withdrawal?: No Have you ever Experienced Withdrawal Seizures?: No Have you ever Experienced Delirium Tremens(DT)s?: No Have you ever undergone Alcohol Rehabilitation Treatment (i.e, inpt ot outpatient treatment programs)?: No Have you ever Experienced Blackouts?: No Have you ever Combined Alcohol with other Downers within the last 90 days?: No Have you ever Combined Alcohol with any other Substance of Abuse during the last 90 days?: No Positive Blood Alcohol level on Presentation? [PCS.BAL]: No Evidence of Increased Autonomic Activity (i.e. HR>120, tremor, sweating, agitation, nausea)?: No Result: 0
== END 2023-04-26 18:50 | disposition home or self-care (01) ==
LOC: ER 19:33
PROVIDERS: Emergency Provider Physician Assistant; PCP Family Medicine
DX: R07.0 Pain in throat (principal); K14.0 Glossitis; S02.5XXA Fracture of tooth (traumatic), initial encounter for closed fracture; F17.220 Nicotine dependence, chewing tobacco, uncomplicated
CPT/HCPCS: 99282; 87081; 99283